=== PATIENT | female | born 1995 | race Caucasian/White ===

== ENCOUNTER 2016-05-07 15:41 | Emergency (ER) | payer OTHER ==
[~2016-05-07] VITALS: Ht 162.6 cm; Wt 62.0 kg
[2016-05-07 15:43] VITALS: BP 120/85; PULSE 83; TEMP 37.2; O2SAT 95; Ht 162.6 cm; Wt 62.0 kg
[2016-05-07] MEDS ORDERED: BCPILLS PO (16:03)
[2016-05-07] MEDS ORDERED: FLUO10CA48 PO (16:03)
[2016-05-07] MEDS ORDERED: CETI10TA84 PO (16:03)
--- NOTE | 2016-05-07 16:43 | DIAGNOSTIC IMAGING REPORT ---
RIGHT ANKLE 3 VIEWS HISTORY: ankle injury Right COMPARISON: None. FINDINGS: There is no fracture or dislocation. Mild soft tissue swelling. No radiopaque foreign bodies. IMPRESSION: No fractures. Electronically signed by: Yaakov Granda M.D. 05/07/2016 4:41 PM Dictated Date/Time: 05/07/2016 4:38 PM
--- NOTE | 2016-05-07 16:49 | EMERGENCY ROOM VISIT NOTE ---
ED Visit Note First contact with patient: 15:44 CHIEF COMPLAINT: Right Ankle injury HISTORY OF PRESENT ILLNESS: This 20-year-old female presents the ER with chief complaint of right ankle pain. The patient states on Friday night while she was under the influence of alcohol she fell down the stairs and injured her right ankle. She is unsure if she twisted the ankle or if she landed on it. The patient denies any foot pain. The patient is able to bear weight on the foot but it is painful. The patient denies any prior injury to the ankle or foot. REVIEW OF SYSTEMS: 6 system review was performed and was negative unless stated otherwise in history of present illness. PMH: No prior significant ankle injury. The patient is generally healthy with no chronic medical problems or a history of major surgery. 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 The patient denies any tobacco use but admits to occasional alcohol use. PHYSICAL EXAM: Vital Signs: Were reviewed Reviewed Nurse's notes. GEN.: 20-year -old white female appears in no acute distress. MENTAL STATUS: Alert, oriented , and cooperative. RIGHT ANKLE: The ankle is swollen and tender over the lateral aspect but the skin is intact and there is no ligamentous instability. There is no deformity. There is ecchymosis noted just inferior to the lateral malleolus. The foot and toes are warm and well-perfused. Sensation to pain and light touch is intact. EMERGENCY DEPARTMENT COURSE: The patient was evaluated. The patient was offered pain medication but declined. X-ray of the right ankle was ordered and interpreted by the radiologist and myself. DIAGNOSTICS:RIGHT ANKLE 3 VIEWS HISTORY: ankle injury Right COMPARISON: None. FINDINGS: There is no fracture or dislocation. Mild soft tissue swelling. No radiopaque foreign bodies. IMPRESSION: No fractures. Electronically signed by: Yaakov Granda M.D. 05/07/2016 4:41 PM The patient was informed of the findings. The patient was placed in a gel splint refused crutches. The patient was discharged home in stable condition.. DIAGNOSIS: Right ankle sprain DISCHARGE INSTRUCTIONS: Elevate foot whenever possible.. Ibuprofen, 600 mg every 6 hours if needed for pain. Wear the gel splint until weightbearing is tolerable. If there is no improvement in 3-5 days followup with [facility] for referral to orthopedics. Current/Historical Medications Scheduled Control Pills ( Control Pills), 1 TAB PO QPM Cetirizine (Zyrtec), 10 MG PO QPM Fluoxetine (Prozac), 30 MG PO QAM Allergies Coded Allergies: No Known Drug Allergy (Unverified Allergy, Unknown, N/A, 05/07/16) POLLEN (Unverified Allergy, Unknown, UNKNOWN, 05/07/16) Vital Signs Date Time Temp Pulse Resp B/P Pulse Ox O2 Delivery O2 Flow Rate FiO2 05/07/16 15:43 37.2 83 18 120/85 95 Room Air Departure Information Referrals No Doctor, Assigned (PCP) Patient Instructions A Signature Page, [facility], [facility]
== END 2016-05-07 17:06 | disposition home or self-care (01) ==
LOC: C.EDB 15:43 → C.EDD 17:06
DX: S93.401A Sprain of unspecified ligament of right ankle, initial encounter (principal); W10.9XXA Fall (on) (from) unspecified stairs and steps, initial encounter; Z79.899 Other long term (current) drug therapy; Z79.3 Long term (current) use of hormonal contraceptives